=== PATIENT | male | born 1985 | race Caucasian/White ===

== ENCOUNTER 2022-11-17 11:38 | Outpatient (REF) | payer OTHER, SELFPAY | END 2022-11-17 11:39 | disposition home or self-care (01) | LOC: LAB 11:38 | PROVIDERS: Visit Provider Nurse Practitioner Primary Care | DX: K14.8 Other diseases of tongue (principal) | CPT/HCPCS: 87255 ==

== ENCOUNTER 2022-11-18 12:51 | Outpatient (OUT) | payer OTHER, SELFPAY ==
[2022-11-18 13:26] LABS: Basophils Absolute Auto 0.1 10^3/uL (0.0-0.1); Basophils Percent Auto 0.9 % (0.2-2.0); Eosinophils Absolute Auto 0.1 10^3/uL (0.0-0.7); Eosinophils Percent Auto 1.3 % (0.9-7.0); Hemoglobin 14.5 g/dL (14.0-18.0); Immature Granulocytes Abs Auto 0.01 10^3/uL (0.00-0.03); Immature Granulocytes Pct Auto 0.2 % (0.0-0.5); Lymphocytes Absolute Auto 1.9 10^3/uL (1.2-3.8); Lymphocytes Percent Auto 33.9 % (20.5-60.0); Mean Corpuscular Hemoglobin 29.8 pg (25.9-34.0); Mean Corpuscular Volume 90.5 fL (80.0-94.0); Mean Platelet Volume 10.1 fL (9.5-13.5); Monocytes Absolute Auto 0.4 10^3/uL (0.3-0.8); Monocytes Percent Auto 7.8 % (1.7-12.0); Neutrophils Absolute Auto 3.1 10^3/uL (1.4-6.5); Neutrophils Percent Auto 55.9 % (43.0-75.0); Platelet Count 227 10^3/uL (150-450); Red Blood Count 4.86 10^6/uL (4.70-6.10); Red Cell Distribution Width 13.2 % (11.0-15.0); White Blood Count 5.5 10^3/uL (4.0-11.0)
[2022-11-18 13:27] LABS: Estimated Average Glucose 108 mg/dL; Glycohemoglobin A1C 5.4 % (4.5-6.2)
[2022-11-18 14:05] LABS: Alanine Aminotransferase 56 U/L (16-63); Albumin Globulin Ratio 0.9; Albumin Level 3.9 g/dL (3.4-5.0); Alkaline Phosphatase 91 U/L (46-116); Anion Gap 10.3; Aspartate Amino Transferase 26 U/L (15-37); BUN Creatinine Ratio 12.8; Bilirubin Total 0.6 mg/dL (0.2-1.0); Calcium 9.1 mg/dL (8.5-10.1); Carbon Dioxide 29.7 mmol/L (21.0-32.0); Chloride 102 mmol/L (98-107); Cholesterol 174 mg/dL (<=200); Estimated GFR (African America >60 (>=60); Estimated GFR (Non-African Ame >60 (>=60); Globulin 4.3 g/dL; Glucose 86 mg/dL (74-106); HDL Cholesterol 35 mg/dL (40-60); Sodium 138 mmol/L (136-145); Total Protein 8.2 g/dL (6.4-8.2); Triglycerides 143 mg/dL (<=150); VLDL CHOLESTEROL 28.6 mg/dL
[2022-11-19 06:09] LABS: HIV Ab/p24 Ag Screen Non Reactive (Non Reactive)
[2022-11-22 13:08] LABS: HCV Ab Reactive (Non Reactive)
== END 2022-11-18 12:52 | disposition home or self-care (01) ==
LOC: LAB 12:53
PROVIDERS: PCP Nurse Practitioner Primary Care; Visit Provider Nurse Practitioner Primary Care
DX: Z00.00 Encounter for general adult medical examination without abnormal findings (principal); Z11.59 Encounter for screening for other viral diseases; Z13.6 Encounter for screening for cardiovascular disorders; Z11.4 Encounter for screening for human immunodeficiency virus [HIV]
CPT/HCPCS: 36415; 80053; 80061; 83036; 85025; 86803; 87389

== ENCOUNTER 2023-01-17 14:09 | Emergency (ER) | payer OTHER, SELFPAY ==
[2023-01-17 14:11] VITALS: BP 128/69; PULSE 99; RESP 16; TEMP 36.4; O2SAT 97; BMI 24.4
--- NOTE | 2023-01-17 14:23 | ED.URI1 ---
HPI - URI/Sore Throat General Chief Complaint: Upper Respiratory Infection Stated Complaint: SORE THROAT Time Seen by Provider: 01/17/23 14:09 Source: patient History of Present Illness HPI Narrative: patient is a 37-year-old male who presents to the emergency department with a family member for the evaluation of cough, congestion and sore throat for the last three days. He has had no objective fevers, vomiting or diarrhea. No difficulty swallowing or speaking. He was around family members over the weekend briefly and states he got a phone call today that they're positive for strep. He is not able to see his PCP until tomorrow. His family member at bedside states he did not feel he should wait and go to work today if he might be positive for strep. No medications taken prior to arrival. Related Data Previous Rx's Medication Instructions Recorded aroionhkknlgqwn-hkiyloximxzgall-MM 10 ml PO Q6H PRN cold symptoms 01/17/23 2 mg-30 mg-10 mg/5 mL oral syrup #200 mL (Bromfed DM) Allergies Allergy/AdvReac Type Severity Reaction Status Date / Time No Known Drug Allergies Allergy Verified 01/17/23 14:29 Review of Systems ROS Constitutional Denies: fever or chills Ears, nose, mouth, and throat Reports: throat pain and nasal congestion Cardiovascular Denies: chest pain Respiratory Reports: cough; Denies: shortness of breath Gastrointestinal Denies: nausea or vomiting Musculoskeletal Denies: back pain Integumentary/Breast Denies: rash Neurological Denies: headache Allergic/Immunologic Denies: hives Exam Narrative Exam Narrative: Gen.: Awake, alert, in no distress Head: Normocephalic, atraumatic ENT: Moist mucous membranes; bilateral tympanic membranes clear, uvula is midline with normal speech, no trismus or drooling. No tonsillar edema or exudate. Respiratory: No respiratory distress, lungs clear bilaterally; no significant coughing noted during evaluation Cardio: Regular rate and rhythm Extremities: Moves extremities equally Psych: Normal mood and affect Neuro: No focal neuro deficit Skin: Warm, dry, intact Constitutional Vital Signs, click to edit/add: Last Vital Signs Temp 97.6 F 01/17/23 14:11 Pulse 99 H 01/17/23 14:11 Resp 16 01/17/23 14:11 BP 128/69 01/17/23 14:11 Pulse Ox 97 01/17/23 14:11 O2 Del Method Room Air 01/17/23 14:11 Course Vital Signs Vital signs: Vital Signs Temperature 97.6 F 01/17/23 14:11 Pulse Rate 99 H 01/17/23 14:11 Respiratory Rate 16 01/17/23 14:11 Blood Pressure 128/69 01/17/23 14:11 Pulse Oximetry 97 01/17/23 14:11 Oxygen Delivery Method Room Air 01/17/23 14:11 Temperature 97.6 F 01/17/23 14:11 Pulse Rate 99 H 01/17/23 14:11 Respiratory Rate 16 01/17/23 14:11 Blood Pressure 128/69 01/17/23 14:11 Pulse Oximetry 97 01/17/23 14:11 Oxygen Delivery Method Room Air 01/17/23 14:11 MDM - URI/Sore Throat MDM Narrative Medical decision making narrative: patient is negative for strep as expected, he has a benign exam, normal vital signs and history and physical consistent with upper respiratory viral infection. He was given Decadron in the Emergency Room and discharged home with Bromfed-DM. Follow-up with PCP and return to the Emergency Room if symptoms change or worsen. Medical Records Attestation: I reviewed the patient's medical records. Lab Data Attestation: I reviewed the patient's lab results. Labs: Lab Results 01/17/23 Range/Units 14:15 Streptococcus Screen Negative Discharge Plan Discharge Chief Complaint: Upper Respiratory Infection Clinical Impression: Upper respiratory infection Patient Disposition: Home, Self-Care Time of Disposition Decision: 14:36 Condition: Good Prescriptions / Home Meds: New mgstdfyvaktdomz-hfobiyypx-EO [Bromfed DM] 2-30-10 mg/5 mL syrup 10 ml PO Q6H PRN (Reason: cold symptoms) Qty: 200 0RF Instructions: Upper Respiratory Infection (ED) Stand Alone Forms: Portal Instructions Referrals: GEN CRAWFORD APRN [Primary Care Provider] - As needed
[2023-01-17 14:34] LABS: Internal Control Within Normal Limits; Strep A Antigen Screen Negative
[2023-01-17] MEDS: DEXAMETHASONE SOD PHOS 10 MG/ML VIAL PO (14:34)
== END 2023-01-17 14:44 | disposition home or self-care (01) ==
PROVIDERS: Physician Assistant; Emergency Provider Emergency Medicine; PCP Nurse Practitioner Primary Care
DX: J06.9 Acute upper respiratory infection, unspecified (principal)
CPT/HCPCS: 87070; 87150; 87186; 87880; 99283; J1100

== ENCOUNTER 2023-01-18 19:16 | Outpatient (REF) | payer OTHER, SELFPAY ==
[2023-01-20 21:08] LABS: Neisseria gonorrhoeae, NAA Negative (Negative)
== END 2023-01-18 19:17 | disposition home or self-care (01) ==
LOC: LAB 19:16
PROVIDERS: PCP Nurse Practitioner Primary Care; Visit Provider Nurse Practitioner Primary Care
DX: F15.10 Other stimulant abuse, uncomplicated (principal); Z11.3 Encounter for screening for infections with a predominantly sexual mode of transmission
CPT/HCPCS: 87491; 87591

== ENCOUNTER 2025-02-17 16:22 | Emergency (ER) | payer OTHER, SELFPAY ==
[2025-02-17 16:30] VITALS: BP 121/84; PULSE 99; TEMP 36.6; O2SAT 99; BMI 25.1
--- NOTE | 2025-02-17 16:56 | ED_ITS ---
HPI HPI - General Adult General Chief complaint: Eye Problems Stated complaint: EYES ARE RED AND HURTING Time Seen by Provider: 02/17/25 16:39 Source: patient Mode of arrival: walk-in Limitations: no limitations History of Present Illness HPI narrative: Patient is a 39-year-old male that presents with complaints of bilateral red eyes, worse on the right after getting soap in the right eye while taking a bath 2 to 3 days ago. He states he was taking meth at the time. He also was concerned about the red eye because he was having oral sex with his girlfriend, but denies she has an STI's. He states prior to this he had a bad upper respiratory infection with cough, chest and nasal congestion. He did have some thin milky like discharge from the right eye initially but this has resolved. He denies any fever, night sweats, or chills. He denies any visual changes or photophobia. Related Data Home Medications ?Medication ?Instructions ?Recorded ?Confirmed No Known Home Medications 02/17/2502/03 Allergies Allergy/AdvReac Type Severity Reaction Status Date / Time No Known Drug Allergies Allergy Verified 02/17/25 16:33 Review of Systems ROS Status of ROS 10 or more systems reviewed and unremark able except as noted in history and below PFSH [facility] Social History Little interest or pleasure in doing things: not at all Feeling down, depressed, or hopeless: not at all Exam Narrative Exam Narrative: General: No distress, age-appropriate Skin: Warm, dry, no pallor. No rash. Head: Normocephalic, atraumatic. Neck: Supple, non-tender. Eye: Pupils are equal, round and EOMI. No scleral icterus. Ears, Nose, Mouth, and Throat: No nasal mucosal hypertrophy. Oral mucosa is moist, no posterior oropharynx erythema, uvula is mid-line Cardiovascular: Regular Rate and Rhythm without murmur, gallop or rub. Respiratory: No accessory muscle use or respiratory distress. Neurological: A&O x4. No cranial nerve dysfunction observed. No truncal ataxia. Moves all extremities. Sensation intact. Psychiatric: Cooperative and interactive. Normal mood and affect. Constitutional Vital Signs, click to edit/add: Last Vital Signs Temp 97.9 F 02/17/25 16:30 Pulse 99 H 02/17/25 16:30 Resp 16 02/17/25 16:30 BP 121/84 02/17/25 16:30 Pulse Ox 99 02/17/25 16:30 O2 Del Method Room Air 02/17/25 16:30 Documenting provider has reviewed patient's vital signs: yes Course Vital Signs Vital signs: Vital Signs Temperature 97.9 F 02/17/25 16:30 Pulse Rate 99 H 02/17/25 16:30 Respiratory Rate 16 02/17/25 16:30 Blood Pressure 121/84 02/17/25 16:30 Pulse Oximetry 99 02/17/25 16:30 Oxygen Delivery Method Room Air 02/17/25 16:30 Temperature 97.9 F 02/17/25 16:30 Pulse Rate 99 H 02/17/25 16:30 Respiratory Rate 16 02/17/25 16:30 Blood Pressure 121/84 02/17/25 16:30 Pulse Oximetry 99 02/17/25 16:30 Oxygen Delivery Method Room Air 02/17/25 16:30 Medical Decision Making [facility] Narrative Medical decision making narrative: This is a 39-year-old male presenting with bilateral eye redness, worse in the right eye, following accidental soap exposure while bathing 2?3 days prior. He also reports recent methamphetamine use at the time of exposure and a preceding upper respiratory infection. He initially noted a thin, milky discharge from the right eye that has since resolved. He denies visual changes, photophobia, eye pain, fever, chills, or systemic symptoms. Given the history of chemical exposure and recent URI, the presentation is most consistent with mild chemical conjunctivitis of the right eye with possible viral conjunctivitis bilaterally. There is low clinical suspicion for bacterial conjunctivitis given resolution of discharge and lack of purulence, and low concern for STI-related conjunctivitis as there is no copious discharge, significant pain, or high-risk exposure. No red flag symptoms to suggest keratitis, uveitis, acute glaucoma, or orbital cellulitis. Patient is stable for discharge with supportive care including eye irrigation, lubricating drops, and close outpatient follow-up. Return precautions for worsening pain, vision changes, photophobia, or recurrent discharge were discussed and understood. Differential Diagnosis Differential Diagnosis: Chemical conjunctivitis, viral conjunctivitis, STI related conjunctivitis Discharge Plan Discharge Chief Complaint: Eye Problems Clinical Impression: Conjunctivitis Patient Disposition: Home, Self-Care Time of Disposition Decision: 17:03 Condition: Good Mode of Transportation: Private Vehicle Prescriptions / Home Meds: No Action No Known Home Medications Print Language: Bahamian Instructions: Conjunctivitis (ED) Additional Instructions: Eye Care at Home * Irrigation: Continue rinsing the affected eye(s) with sterile saline or clean water 2?3 times daily if irritation persists. * Artificial tears / lubricating drops: Use every 4?6 hours for comfort. * Avoid rubbing your eyes, as this can worsen irritation or cause injury. * Cold compresses can help reduce redness and discomfort. Warning Signs ? Seek Care Immediately If Go to the ER or contact an eye doctor immediately if you notice any of the following: * Sudden decrease in vision or blurred vision * Severe eye pain or photophobia (light sensitivity) * Persistent or worsening redness * New or increasing discharge from the eye * Corneal clouding or white spots on the eye Follow-Up * Ophthalmology follow-up: Recommended within 24?48 hours if symptoms persist or worsen, or sooner if warning signs appear. Additional Recommendations * Wash hands frequently and avoid touching your eyes. * Avoid contact lens use until fully recovered. * Avoid sharing towels, washcloths, or pillowcases to prevent spread. Referrals: Mitul Sorenson NP [Primary Care Provider] - 1 week Discharge Date/Time: 02/17/25 17:46
== END 2025-02-17 17:46 | disposition home or self-care (01) ==
LOC: ER 17:29
PROVIDERS: Emergency Provider Emergency Medicine; PCP Nurse Practitioner Primary Care
DX: H10.9 Unspecified conjunctivitis (principal)
CPT/HCPCS: 99281